=== PATIENT | female | born 1950 | race Caucasian/White ===

== ENCOUNTER → 2024-02-27 12:39 | Outpatient (REF) | payer MEDICARE, BC, SELFPAY | LOC: RAD 12:39 | PROVIDERS: ATTENDING PHYSICIAN Surgery Vascular Surgery; FAMILY PHYSICIAN Family Medicine | DX: I77.3 Arterial fibromuscular dysplasia (principal) | CPT/HCPCS: 93975 ==

== ENCOUNTER 2024-07-25 12:54 | Emergency (ER) | payer MEDICARE, BC, SELFPAY ==
[2024-07-25 13:01] VITALS: BP 139/73
--- NOTE | 2024-07-25 15:42 | ED.MUSCINJ ---
HPI-Injury
General
Chief Complaint: Fall
Source: patient
Exam Limitations: none
Time Seen by Provider: 07/25/24 15:30
History of Present Illness-Injury
Initial Injury comments:
73-year-old female not anticoagulated presents complaining of headache neck pain and lower back pain after a fall she sustained a week ago. She was going down an escalator and fell. She was disoriented at the time. She was able to go on a cruise
for the next week. She was ambulatory with a cane. Most of her symptoms are in her back. She denies chest pain or shortness of breath. She denies any numbness. No other complaints at this time
Phy Exam
Physical Exam
Physical Exam:
General: Uncomfortable appearing female no acute respiratory distress
HEENT: Normocephalic atraumatic tender over the posterior scalp. Pupils equal round reactive to light
Heart: Regular rate and rhythm
Lungs: Clear
Abdomen is soft nontender nondistended no guarding rebound normal bowel sounds
Extremities: No cyanosis
Skin: Ecchymosis noted over the lumbar spine and the lumbosacral junction. Abrasion noted to the thoracic spine. There is also contusion noted to the lateral left knee and murphy.
Musculoskeletal exam: Lumbar spine is tender. There is some tenderness of the paraspinous area of the cervical spine.
Neurologic: Alert and oriented.
Injury Course
Orders/Labs/Results
Orders:
Orders
07/25/24 15:41
CT Cervical Spine W/o Iv Contr Urgent
Comment:
Reason For Exam: fall
CT Head W/o Iv Contrast Urgent
Comment:
Reason For Exam: fall
CR Lumbar Spine 2 Or 3 Views Urgent
Comment:
Reason For Exam: fall
07/25/24 19:20
Cyclobenzaprine HCl [Flexeril] 5 mg PO NOW STA
07/25/24 19:21
Erythromycin (Ilotycin) [Erythromycin 0.5% Ophthalmic Ointment] See Dose Instructions OPHTH NOW STA
MDM/Problems Addressed
Differential Diagnosis Includes:
Fall 1 week ago with persistent pain to the lumbar spine headache and neck. CT of head and cervical spine pending to evaluate for fracture intracranial hemorrhage or skull injury. X-ray lumbar spine pending as well
*Critical Care Note
Total Time (30-74mins, 75-104mins- exclusive of procedures): Not Applicable
Update Note
Update Note:
X-rays reviewed without any fracture of the lumbar spine. CT of head and cervical spine were reviewed. There is a thin subfalcine subdural hematoma. Discussed findings with neurosurgery as well as emergency room attending. This injury is a week
old. She is neurologically intact. She is not on any anticoagulants. Chart lists her taking aspirin however she has not been on that for quite some time. No indication for any admission for this at this point secondary to the time that has
elapsed since the injury. Recommended continuation of Tylenol. She was given cyclobenzaprine for her strain and spasm of the lumbar spine
ED Attending Note
-
Portions of this chart may have been created with voice recognition software.� Occasional wrong word or��sound alike� substitutions may have occurred due to the inherent limitations of voice recognition software.
Discharge Plan
Departure
Patient Disposition: Home (Routine Discharge)
Date of Disposition: 07/25/24
Time of Disposition: 19:23
Patient with high blood pressure during this ER visit?: No
Discharge Problem:
Subdural hematoma, Lumbar strain
Prescriptions:
New
cyclobenzaprine 5 mg tablet
5 mg PO TID PRN (Reason: muscle spasm) Qty: 10 0RF
No Action
aspirin 81 mg capsule
81 mg PO DAILY Qty: 30 0RF
Referrals:
Steffen Casey DO [Family Provider] -
Activity Restrictions/Additional Instructions:
Use Tylenol for pain. Use muscle relaxer as needed for spasm. Return here for any worsening symptoms otherwise follow-up with your family
Interventions
Interventions:
*Risk Screen - Suicide Last Done: 07/25/24 13:01
*General Assessment Last Done: 07/25/24 13:01
*Neglect/Abuse Screening Last Done: 07/25/24 13:01
*ED COVID-19 Vaccine History Last Done: 07/25/24 13:01
ED-Musculoskeletal Assessment Last Done: 07/25/24 16:06
ED- Neurological Assessment Last Done: 07/25/24 16:06
ED-Skin Assessment Last Done: 07/25/24 16:06
Discharge Date and Time
Print Language: FRISIAN
[2024-07-25 18:51] VITALS: BP 145/48
[2024-07-25] MEDS: ERYTHROMYCIN 0.5% OPHTHALMIC OINTMENT 1 APPLIC OPHTH (19:44)
[2024-07-25] MEDS: FLEXERIL 5 MG PO (19:44)
== END 2024-07-25 20:17 | disposition home or self-care (01) ==
LOC: EMR 12:54
PROVIDERS: EMERGENCY PHYSICIAN Emergency Medicine; FAMILY PHYSICIAN Family Medicine
DX: S06.5X0A Traumatic subdural hemorrhage without loss of consciousness, initial encounter (principal); S39.012A Strain of muscle, fascia and tendon of lower back, initial encounter; S80.02XA Contusion of left knee, initial encounter; S80.12XA Contusion of left lower leg, initial encounter; S30.0XXA Contusion of lower back and pelvis, initial encounter; S20.419A Abrasion of unspecified back wall of thorax, initial encounter; W10.0XXA Fall (on)(from) escalator, initial encounter
CPT/HCPCS: 99284; 70450; 72100; 72125

== ENCOUNTER → 2024-09-01 12:13 | Outpatient (REF) | payer MEDICARE, BC, SELFPAY | LOC: HWRAD 12:13 | PROVIDERS: ATTENDING PHYSICIAN Nurse Practitioner Family; FAMILY PHYSICIAN Family Medicine | DX: S06.5XAA Traumatic subdural hemorrhage with loss of consciousness status unknown, initial encounter (principal) | CPT/HCPCS: 70450 ==

== ENCOUNTER → 2024-12-14 13:41 | Outpatient (REF) | payer MEDICARE, BC, SELFPAY | LOC: RAD 13:41 | PROVIDERS: ATTENDING PHYSICIAN Surgery Vascular Surgery; FAMILY PHYSICIAN Family Medicine | DX: I77.3 Arterial fibromuscular dysplasia (principal) | CPT/HCPCS: 70496; 70498; Q9967 ==